=== PATIENT | male | born 1965 | race Caucasian/White ===

== ENCOUNTER 2018-03-11 12:13 | Inpatient (IN) | payer OTHER ==
[2018-03-11] MEDS: METHYLPREDNISOLONE 125 MG INJ IV ×2 (13:18→21:33)
[2018-03-11] MEDS: ALBUTEROL 0.5% (NEB) 2.5 MG/0.5 ML AMP INH (13:19)
[2018-03-11] MEDS: IPRATROPIUM (NEB) 0.5 MG/2.5 ML AMP INH (13:19)
[2018-03-11] MEDS: NALOXONE (0.4 MG/ML) INJ IV (13:22)
[2018-03-11] MEDS: ONDANSETRON 4 MG INJ IV ×2 (13:27→13:30)
[2018-03-11] MEDS: ASPIRIN 81 MG TAB PO (13:27)
[2018-03-11 13:34] LABS: ADD MAN DIFF? NO
[2018-03-11 13:36] LABS: BASOPHIL # 0.1 10^3/ul (0.0-0.1); EOSINOPHILS # 0.9 10^3/ul (0.0-0.5); EOSINOPHILS % 12.8 % (0.0-7.0); HEMATOCRIT 56.4 % (42.0-52.0); LYMPHOCYTES # 1.8 10^3/ul (0.8-2.9); LYMPHOCYTES % 25.5 % (15.0-51.0); MEAN CORPUSCULAR HEMOGLOBIN 31.1 pg (29.0-33.0); MEAN CORPUSCULAR HGB CONC 33.7 g/dl (32.0-37.0); MEAN CORPUSCULAR VOLUME 92.5 fl (82.0-101.0); MEAN PLATELET VOLUME 8.6 fl (7.4-10.4); MONOCYTE # 0.8 10^3/ul (0.3-0.9); NEUTROPHIL # 3.6 10^3/ul (1.6-7.5); NEUTROPHILS % 49.3 % (39.0-77.0); PLATELET COUNT 170 10^3/UL (140-415); RED CELL DISTRIBUTION WIDTH 13.7 % (11.5-14.5)
[2018-03-11 13:36] LABS: WHITE BLOOD COUNT 7.2 10^3/ul (4.8-10.8)
[2018-03-11 13:44] LABS: AADO2 Arterial 100.8 mmHg (7.0-24.0); Allen Test ACCEPTAB; Arterial Base Excess 1.4 mmol/L (-3.0-3); Arterial COHb 1.8 % (0.0-3.0); Arterial Fraction of Oxyhgb 96.6 % (93.0-99.0); Arterial HCO3 27.6 mmol/L (22.0-26.0); Arterial MetHb 0.6 % (0.0-1.5); Arterial Total Hemglobin 20.5 g/dl (12.0-18.0); Arterial pCO2 47.9 mmhg (35-45); MODE MASK - SIMPLE; Site Left Radial
[2018-03-11 13:55] LABS: ANION GAP 16 (8-16); BLOOD UREA NITROGEN 12 mg/dl (7-20); CALCIUM 8.6 mg/dl (8.4-10.2); CARBON DIOXIDE 25 mmol/L (21-31); CHLORIDE 103 mmol/L (97-110); CREATININE 1.16 mg/dl (0.61-1.24); GLUCOSE 118 mg/dl (70-220); SODIUM 140 mmol/L (135-144)
[2018-03-11 14:00] LABS: ETHANOL < 10.0 mg/dl
[2018-03-11 14:01] LABS: ADD UMIC NO; UR ASCORBIC ACID NEGATIVE (NEGATIVE); UR BILIRUBIN (Dip) NEGATIVE (NEGATIVE); UR BLOOD (Dip) NEGATIVE (NEGATIVE); UR CLARITY CLEAR (CLEAR); UR COLOR YELLOW (YELLOW); UR GLUCOSE (Dip) 2+ mg/dL (NEGATIVE); UR KETONES (Dip) NEGATIVE (NEGATIVE); UR LEUKOCYTE ESTERASE (Dip) NEGATIVE Leu/ul (NEGATIVE); UR NITRITE (Dip) NEGATIVE (NEGATIVE); UR SPECIFIC GRAVITY (Dip) 1.027 (1.003-1.030); UR TOTAL PROTEIN (Dip) NEGATIVE (NEGATIVE); UR UROBILINOGEN (Dip) 2+ mg/dL (NEGATIVE)
[2018-03-11 14:08] LABS: B-TYPE NATRIURETIC PEPTIDE 23 PG/ML (0-125); TROPONIN-I < 0.012 ng/ml (0.00-0.12)
[2018-03-11 14:24] LABS: AMPHETAMINE/METHAMPHETAMINE Positive (NEGATIVE); BARBITURATES Negative (NEGATIVE); BENZODIAZEPINES Negative (NEGATIVE); CANNABINOIDS Positive (NEGATIVE); COCAINE Positive (NEGATIVE); OPIATES Negative (NEGATIVE)
[2018-03-11] MEDS ORDERED: ACETAMINOPHEN 325 MG TAB PO (15:30)
[2018-03-11] MEDS ORDERED: hydrALAzine 20 MG INJ IV (15:30)
[2018-03-11] MEDS ORDERED: NACL 0.9% 3 ML SYG IV (15:30)
[2018-03-11] MEDS ORDERED: ONDANSETRON 4 MG INJ IV (15:30)
[2018-03-11] MEDS ORDERED: ALBUTEROL/IPRATROPIUM (NEB) 3 ML AMP HHN (15:30)
[2018-03-11 15:34] LABS: HEMOGLOBIN A1C 5.9 % (0-5.9)
[2018-03-11 15:49] LABS: FREE T4 (FREE THYROXINE) 0.85 ng/dl (0.64-1.79)
[2018-03-11] MEDS ORDERED: LORAZEPAM 2 MG INJ IV (16:00)
[2018-03-11] MEDS: ALBUTEROL/IPRATROPIUM (NEB) 3 ML AMP HHN (21:32)
[2018-03-11] MEDS: FAMOTIDINE 20 MG TAB PO (21:33)
[2018-03-11] MEDS: CHLORDIAZEPOXIDE 25 MG CAP PO (22:08)
[2018-03-12 05:44] LABS: ADD MAN DIFF? NO
[2018-03-12 05:46] LABS: BASOPHILS % 0.1 % (0.0-2.0); HEMATOCRIT 55.3 % (42.0-52.0); HEMOGLOBIN 18.8 g/dl (14.0-18.0); LYMPHOCYTES % 9.8 % (15.0-51.0); MEAN CORPUSCULAR HEMOGLOBIN 31.3 pg (29.0-33.0); MEAN CORPUSCULAR VOLUME 92.2 fl (82.0-101.0); MEAN PLATELET VOLUME 8.9 fl (7.4-10.4); MONOCYTE # 0.4 10^3/ul (0.3-0.9); MONOCYTES % 3.5 % (0.0-11.0); NEUTROPHIL # 9.1 10^3/ul (1.6-7.5); NEUTROPHILS % 86.1 % (39.0-77.0); PLATELET COUNT 193 10^3/UL (140-415); RED CELL DISTRIBUTION WIDTH 13.8 % (11.5-14.5)
[2018-03-12 05:46] LABS: WHITE BLOOD COUNT 10.5 10^3/ul (4.8-10.8)
[2018-03-12 06:11] LABS: CHOL/HDL RATIO 5.3 RATIO; CHOLESTEROL 170 mg/dl (100-200); HDL CHOLESTEROL 32 mg/dl (28-71); LDL CHOLESTEROL,CALCULATED 127 mg/dl; MAGNESIUM 2.3 mg/dl (1.7-2.5); TRIGLYCERIDES 54 mg/dl (0-149)
[2018-03-12 06:11] LABS: PHOSPHORUS 2.6 mg/dl (2.5-4.9)
[2018-03-12 06:15] LABS: INR 1.02; PARTIAL THROMBOPLASTIN TIME 28.4 Sec (25.0-35.0); PROTIME 13.5 Sec (11.9-14.9); PT RATIO 1.1
[2018-03-12 06:16] LABS: ANION GAP 13 (8-16); BLOOD UREA NITROGEN 14 mg/dl (7-20); CALCIUM 8.9 mg/dl (8.4-10.2); CARBON DIOXIDE 27 mmol/L (21-31); CHLORIDE 106 mmol/L (97-110); CREATININE 1.06 mg/dl (0.61-1.24); GLUCOSE 202 mg/dl (70-220); POTASSIUM 4.5 mmol/L (3.5-5.1); SODIUM 141 mmol/L (135-144)
[2018-03-12] MEDS: METHYLPREDNISOLONE 125 MG INJ IV (06:20)
[2018-03-12] MEDS: ALBUTEROL/IPRATROPIUM (NEB) 3 ML AMP HHN (08:12)
[2018-03-12] MEDS: CHLORDIAZEPOXIDE 25 MG CAP PO (09:17)
[2018-03-12] MEDS: FAMOTIDINE 20 MG TAB PO (09:17)
[2018-03-12] MEDS: MULTIVITAMINS THERAPEUTIC TAB PO (09:17)
[2018-03-12] MEDS: ENOXAPARIN 40 MG/0.4 ML SYG SC (09:19)
[2018-03-12] MEDS ORDERED: METHYLPREDNISOLONE 40 MG INJ IV (14:00)
== END 2018-03-12 13:10 | disposition home or self-care (01) | DRG 190 ==
LOC: E/R 12:13 → MS4 14:04
DX: J44.1 Chronic obstructive pulmonary disease with (acute) exacerbation (principal); J96.01 Acute respiratory failure with hypoxia; I10 Essential (primary) hypertension; F12.10 Cannabis abuse, uncomplicated; F14.10 Cocaine abuse, uncomplicated; F10.10 Alcohol abuse, uncomplicated; Y90.0 Blood alcohol level of less than 20 mg/100 ml; F15.10 Other stimulant abuse, uncomplicated; F17.210 Nicotine dependence, cigarettes, uncomplicated
CPT/HCPCS: 36600; 71045; 80048; 80061; 80306; 80307; 81003; 82803; 83036; 83735; 83880; 84100; 84439; 84443; 84484; 85025; 85610; 85730; 93005; 94640; 94644; 96374; 96375; 99285-25

== ENCOUNTER 2018-06-19 07:56 | Inpatient (IN) | payer OTHER ==
[2018-06-19 09:00] LABS: ADD MAN DIFF? NO
[2018-06-19 09:15] LABS: BASOPHIL # 0.1 10^3/ul (0.0-0.1); BASOPHILS % 0.6 % (0.0-2.0); EOSINOPHILS # 0.5 10^3/ul (0.0-0.5); EOSINOPHILS % 5.1 % (0.0-7.0); HEMATOCRIT 54.5 % (42.0-52.0); HEMOGLOBIN 18.7 g/dl (14.0-18.0); LYMPHOCYTES # 2.2 10^3/ul (0.8-2.9); LYMPHOCYTES % 20.7 % (15.0-51.0); MEAN CORPUSCULAR HEMOGLOBIN 31.6 pg (29.0-33.0); MEAN CORPUSCULAR HGB CONC 34.3 g/dl (32.0-37.0); MEAN CORPUSCULAR VOLUME 92.2 fl (82.0-101.0); MEAN PLATELET VOLUME 8.5 fl (7.4-10.4); MONOCYTE # 0.7 10^3/ul (0.3-0.9); MONOCYTES % 6.8 % (0.0-11.0); NEUTROPHIL # 6.9 10^3/ul (1.6-7.5); NEUTROPHILS % 66.1 % (39.0-77.0); PLATELET COUNT 207 10^3/UL (140-415); RED BLOOD COUNT 5.91 10^6/ul (4.70-6.10); RED CELL DISTRIBUTION WIDTH 12.7 % (11.5-14.5)
[2018-06-19 09:15] LABS: WHITE BLOOD COUNT 10.5 10^3/ul (4.8-10.8)
[2018-06-19 09:33] LABS: ALANINE AMINOTRANSFERASE 34 IU/L (13-69); ALBUMIN/GLOBULIN RATIO 1.48; ALKALINE PHOSPHATASE 91 IU/L (42-121); ANION GAP 11 (8-16); ASPARTATE AMINO TRANSFERASE 28 IU/L (15-46); BILIRUBIN,INDIRECT 0.7 mg/dl (0-1.1); BILIRUBIN,TOTAL 0.7 mg/dl (0.2-1.3); BLOOD UREA NITROGEN 13 mg/dl (7-20); CALCIUM 8.5 mg/dl (8.4-10.2); CARBON DIOXIDE 29 mmol/L (21-31); CHLORIDE 99 mmol/L (97-110); CREATININE 0.96 mg/dl (0.61-1.24); GLUCOSE 144 mg/dl (70-220); SODIUM 136 mmol/L (135-144); TOTAL PROTEIN 6.7 g/dl (6.1-8.1)
[2018-06-19 09:50] LABS: INR 1.06; PARTIAL THROMBOPLASTIN TIME 28.6 Sec (25.0-35.0); PROTIME 13.9 Sec (11.9-14.9); PT RATIO 1.1
[2018-06-19] MEDS ORDERED: BUPIVACAINE 0.25% (MPF) 30 ML INJ (11:48)
[2018-06-19] MEDS ORDERED: POLYMYXIN/BACITRACIN 1L IRRIG (11:50)
[2018-06-19] MEDS ORDERED: DIPHENHYDRAMINE 50 MG INJ IV (12:00)
[2018-06-19] MEDS ORDERED: FENTAnyl 50 MCG/ML VIAL IV ×2 (12:00)
[2018-06-19] MEDS ORDERED: hydrALAzine 20 MG INJ IV ×2 (12:00→18:30)
[2018-06-19] MEDS ORDERED: MIDAZOLAM 1 MG/ML 2 ML INJ IV (12:00)
[2018-06-19] MEDS ORDERED: HYDROmorphONE 1 MG/5 ML IV SYRINGE IV ×2 (12:00)
[2018-06-19] MEDS ORDERED: METOCLOPRAMIDE 10 MG INJ IV (12:00)
[2018-06-19] MEDS ORDERED: OXYCODONE/ACETAMINOPHEN (5/325) TAB PO ×2 (12:00)
[2018-06-19] MEDS ORDERED: EPHEDrine SULFATE 50 MG/5 ML SYG IV (12:00)
[2018-06-19] MEDS ORDERED: SUCCINYLCHOLINE CHLORIDE 100 MG/5 ML SYG IV (12:15)
[2018-06-19] MEDS ORDERED: CEFAZOLIN 1 GM INJ (12:15)
[2018-06-19] MEDS ORDERED: ROCURONIUM 50 MG INJ ×2 (12:15→13:11)
[2018-06-19] MEDS ORDERED: NEOSTIGMINE 3 MG/3 ML SYRINGE ×2 (12:15→13:11)
[2018-06-19] MEDS ORDERED: LIDOCAINE 2% (SDV) 5 ML INJ (12:15)
[2018-06-19] MEDS ORDERED: GLYCOPYRROLATE 0.4 MG INJ ×2 (12:15→13:11)
[2018-06-19] MEDS ORDERED: PROPOFOL 20 ML (12:15)
[2018-06-19] MEDS ORDERED: FENTAnyl 50 MCG/ML VIAL (12:27)
[2018-06-19] MEDS: CEFAZOLIN 2 GM/50 ML (PMX) 50 ML IVPB (12:37)
[2018-06-19] MEDS ORDERED: LABETALOL HCL 20MG INJ (13:18)
[2018-06-19] MEDS: BUPIVACAINE 0.25% (MPF) 30 ML INJ INJ (13:30)
[2018-06-19] MEDS: LABETALOL HCL 20MG INJ IV ×2 (13:55→14:09)
[2018-06-19] MEDS ORDERED: HYDROCODONE/APAP (10/325) TAB PO (14:00)
[2018-06-19] MEDS: HYDROmorphONE 1 MG/5 ML IV SYRINGE IV ×3 (14:05→14:34)
[2018-06-19] MEDS: FENTAnyl 50 MCG/ML VIAL IV ×3 (14:06→14:35)
[2018-06-19] MEDS: SOD CHLORIDE 0.9% 1,000 ML IV (14:11)
[2018-06-19] MEDS: MEPERIDINE 25 MG INJ IV (14:36)
[2018-06-19] MEDS: ONDANSETRON 4 MG INJ IV (14:37)
[2018-06-19 16:25] LABS: ADD MAN DIFF? NO
[2018-06-19 16:26] LABS: BASOPHIL # 0.1 10^3/ul (0.0-0.1); BASOPHILS % 0.4 % (0.0-2.0); EOSINOPHILS # 0.3 10^3/ul (0.0-0.5); HEMATOCRIT 55.6 % (42.0-52.0); HEMOGLOBIN 18.9 g/dl (14.0-18.0); IMMATURE GRANS #M 0.08 10^3/ul; IMMATURE GRANS % (M) 0.6 %; LYMPHOCYTES # 1.4 10^3/ul (0.8-2.9); LYMPHOCYTES % 10.3 % (15.0-51.0); MEAN CORPUSCULAR HEMOGLOBIN 31.8 pg (29.0-33.0); MEAN CORPUSCULAR VOLUME 93.6 fl (82.0-101.0); MEAN PLATELET VOLUME 8.2 fl (7.4-10.4); MONOCYTE # 0.7 10^3/ul (0.3-0.9); MONOCYTES % 5.2 % (0.0-11.0); NEUTROPHILS % 81.5 % (39.0-77.0); PLATELET COUNT 187 10^3/UL (140-415); RED BLOOD COUNT 5.94 10^6/ul (4.70-6.10); RED CELL DISTRIBUTION WIDTH 12.9 % (11.5-14.5)
[2018-06-19 16:26] LABS: WHITE BLOOD COUNT 13.5 10^3/ul (4.8-10.8)
[2018-06-19 16:44] LABS: ALANINE AMINOTRANSFERASE 32 IU/L (13-69); ALBUMIN 3.8 g/dl (3.3-4.9); ALKALINE PHOSPHATASE 85 IU/L (42-121); ANION GAP 14 (8-16); ASPARTATE AMINO TRANSFERASE 32 IU/L (15-46); BILIRUBIN,INDIRECT 0.6 mg/dl (0-1.1); BILIRUBIN,TOTAL 0.6 mg/dl (0.2-1.3); BLOOD UREA NITROGEN 15 mg/dl (7-20); CALCIUM 8.2 mg/dl (8.4-10.2); CARBON DIOXIDE 24 mmol/L (21-31); CHLORIDE 102 mmol/L (97-110); CREATININE 0.99 mg/dl (0.61-1.24); GLUCOSE 170 mg/dl (70-220); POTASSIUM 3.7 mmol/L (3.5-5.1); SODIUM 136 mmol/L (135-144); TOTAL PROTEIN 6.5 g/dl (6.1-8.1)
[2018-06-19] MEDS: morphine 2 MG INJ IV (22:08)
[2018-06-19] MEDS ORDERED: GLUCAGON 1 MG INJ IM (23:45)
[2018-06-19] MEDS ORDERED: GLUCOSE GEL 15 GRAM TUBE BUCCAL (23:45)
[2018-06-19] MEDS ORDERED: GLUCOSE GEL 15 GRAM TUBE PO ×2 (23:45)
[2018-06-19] MEDS ORDERED: DEXTROSE 50% 50 ML SYRINGE IV ×2 (23:45)
[2018-06-20] MEDS: SOD CHLORIDE 0.9% 1,000 ML IV ×3 (01:27→11:51)
[2018-06-20] MEDS: ACCU-CHEK XX (02:00)
[2018-06-20 05:20] LABS: ADD MAN DIFF? NO
[2018-06-20 05:21] LABS: BASOPHIL # 0.1 10^3/ul (0.0-0.1); BASOPHILS % 0.4 % (0.0-2.0); EOSINOPHILS # 0.1 10^3/ul (0.0-0.5); EOSINOPHILS % 0.4 % (0.0-7.0); HEMATOCRIT 55.4 % (42.0-52.0); HEMOGLOBIN 18.7 g/dl (14.0-18.0); IMMATURE GRANS #M 0.08 10^3/ul; IMMATURE GRANS % (M) 0.6 %; LYMPHOCYTES # 1.1 10^3/ul (0.8-2.9); LYMPHOCYTES % 8.2 % (15.0-51.0); MEAN CORPUSCULAR HEMOGLOBIN 31.4 pg (29.0-33.0); MEAN CORPUSCULAR HGB CONC 33.8 g/dl (32.0-37.0); MEAN CORPUSCULAR VOLUME 93.1 fl (82.0-101.0); MEAN PLATELET VOLUME 8.7 fl (7.4-10.4); MONOCYTES % 7.2 % (0.0-11.0); NEUTROPHIL # 11.6 10^3/ul (1.6-7.5); NEUTROPHILS % 83.2 % (39.0-77.0); PLATELET COUNT 207 10^3/UL (140-415); RED BLOOD COUNT 5.95 10^6/ul (4.70-6.10)
[2018-06-20 05:53] LABS: ALANINE AMINOTRANSFERASE 26 IU/L (13-69); ALBUMIN 3.9 g/dl (3.3-4.9); ALBUMIN/GLOBULIN RATIO 1.44; ALKALINE PHOSPHATASE 87 IU/L (42-121); ANION GAP 15 (8-16); ASPARTATE AMINO TRANSFERASE 25 IU/L (15-46); BLOOD UREA NITROGEN 14 mg/dl (7-20); CALCIUM 8.3 mg/dl (8.4-10.2); CARBON DIOXIDE 26 mmol/L (21-31); CHLORIDE 102 mmol/L (97-110); CREATININE 0.92 mg/dl (0.61-1.24); GLUCOSE 166 mg/dl (70-220); POTASSIUM 3.7 mmol/L (3.5-5.1); SODIUM 139 mmol/L (135-144); TOTAL PROTEIN 6.6 g/dl (6.1-8.1)
[2018-06-20] MEDS: CEFAZOLIN 2 GM/50 ML (PMX) 50 ML IVPB (06:14)
[2018-06-20] MEDS: INSULIN ASPART [NOVOLOG] 3 ML PEN SC ×2 (07:52→12:00)
[2018-06-20] MEDS: morphine 2 MG INJ IV ×2 (08:15→11:29)
[2018-06-20] MEDS ORDERED: NALOXONE (0.4 MG/ML) INJ IV (12:00)
[2018-06-20] MEDS: NS + KCL 20 MEQ 1,000 ML IV ×2 (13:23→23:18)
[2018-06-20] MEDS: KETOROLAC 30 MG INJ IV ×2 (13:35→17:39)
[2018-06-20] MEDS: HYDROmorphONE 0.2 MG/ML PCA IV (14:18)
[2018-06-20] MEDS ORDERED: INSULIN ASPART [NOVOLOG] 3 ML PEN SC (17:00)
[2018-06-20] MEDS: Insulin NOVOLOG SS MILD Algorithm (NPO/TPN/ENTERAL FEEDS) SC ×2 (17:00→21:00)
[2018-06-21] MEDS: KETOROLAC 30 MG INJ IV ×4 (00:03→17:45)
[2018-06-21] MEDS: Insulin NOVOLOG SS MILD Algorithm (NPO/TPN/ENTERAL FEEDS) SC ×5 (01:00→17:04)
[2018-06-21] MEDS: ACCU-CHEK XX (02:00)
[2018-06-21 05:09] LABS: ADD MAN DIFF? NO
[2018-06-21 05:18] LABS: BASOPHILS % 0.3 % (0.0-2.0); EOSINOPHILS # 0.1 10^3/ul (0.0-0.5); EOSINOPHILS % 0.8 % (0.0-7.0); HEMOGLOBIN 16.5 g/dl (14.0-18.0); IMMATURE GRANS #M 0.07 10^3/ul; IMMATURE GRANS % (M) 0.6 %; LYMPHOCYTES # 1.4 10^3/ul (0.8-2.9); LYMPHOCYTES % 11.8 % (15.0-51.0); MEAN CORPUSCULAR HEMOGLOBIN 31.3 pg (29.0-33.0); MEAN CORPUSCULAR HGB CONC 33.7 g/dl (32.0-37.0); MEAN CORPUSCULAR VOLUME 92.8 fl (82.0-101.0); MEAN PLATELET VOLUME 8.7 fl (7.4-10.4); MONOCYTE # 1.1 10^3/ul (0.3-0.9); MONOCYTES % 8.9 % (0.0-11.0); NEUTROPHIL # 9.3 10^3/ul (1.6-7.5); NEUTROPHILS % 77.6 % (39.0-77.0); PLATELET COUNT 179 10^3/UL (140-415); RED BLOOD COUNT 5.28 10^6/ul (4.70-6.10); RED CELL DISTRIBUTION WIDTH 13.2 % (11.5-14.5)
[2018-06-21 05:26] LABS: ANION GAP 11 (8-16); BLOOD UREA NITROGEN 14 mg/dl (7-20); CALCIUM 8.1 mg/dl (8.4-10.2); CARBON DIOXIDE 28 mmol/L (21-31); CHLORIDE 103 mmol/L (97-110); CREATININE 0.74 mg/dl (0.61-1.24); GLUCOSE 132 mg/dl (70-220); POTASSIUM 3.5 mmol/L (3.5-5.1); SODIUM 138 mmol/L (135-144)
[2018-06-21] MEDS: PANTOPRAZOLE 40 MG INJ IV (06:15)
[2018-06-21] MEDS: NS + KCL 20 MEQ 1,000 ML IV ×3 (08:49→19:40)
[2018-06-21] MEDS ORDERED: INSULIN ASPART [NOVOLOG] 3 ML PEN SC (21:00)
[2018-06-21] MEDS: Insulin NOVOLOG SS MILD Algorithm (SS with meals and bedtime) SC (21:00)
[2018-06-22] MEDS: KETOROLAC 30 MG INJ IV ×2 (00:12→05:54)
[2018-06-22] MEDS: ACCU-CHEK XX ×2 (02:00→20:22)
[2018-06-22] MEDS: NS + KCL 20 MEQ 1,000 ML IV ×3 (04:16→21:16)
[2018-06-22 05:25] LABS: ADD MAN DIFF? NO
[2018-06-22 05:29] LABS: BASOPHILS % 0.3 % (0.0-2.0); EOSINOPHILS # 0.4 10^3/ul (0.0-0.5); EOSINOPHILS % 3.6 % (0.0-7.0); HEMATOCRIT 40.4 % (42.0-52.0); HEMOGLOBIN 13.3 g/dl (14.0-18.0); IMMATURE GRANS #M 0.06 10^3/ul; IMMATURE GRANS % (M) 0.5 %; MEAN CORPUSCULAR HEMOGLOBIN 31.2 pg (29.0-33.0); MEAN CORPUSCULAR HGB CONC 32.9 g/dl (32.0-37.0); MEAN CORPUSCULAR VOLUME 94.8 fl (82.0-101.0); MEAN PLATELET VOLUME 8.7 fl (7.4-10.4); MONOCYTE # 0.9 10^3/ul (0.3-0.9); MONOCYTES % 7.6 % (0.0-11.0); NEUTROPHIL # 8.1 10^3/ul (1.6-7.5); PLATELET COUNT 161 10^3/UL (140-415); RED BLOOD COUNT 4.26 10^6/ul (4.70-6.10); RED CELL DISTRIBUTION WIDTH 13.2 % (11.5-14.5)
[2018-06-22 05:29] LABS: WHITE BLOOD COUNT 11.5 10^3/ul (4.8-10.8)
[2018-06-22] MEDS: PANTOPRAZOLE 40 MG INJ IV (05:53)
[2018-06-22 06:00] LABS: ANION GAP 8 (8-16); BLOOD UREA NITROGEN 15 mg/dl (7-20); CALCIUM 7.6 mg/dl (8.4-10.2); CARBON DIOXIDE 27 mmol/L (21-31); CHLORIDE 108 mmol/L (97-110); CREATININE 0.71 mg/dl (0.61-1.24); GLUCOSE 116 mg/dl (70-220); POTASSIUM 3.8 mmol/L (3.5-5.1); SODIUM 139 mmol/L (135-144)
[2018-06-22] MEDS: Insulin NOVOLOG SS MILD Algorithm (SS with meals and bedtime) SC ×4 (07:30→20:22)
[2018-06-22] MEDS ORDERED: KETOROLAC 30 MG INJ IV (13:00)
[2018-06-22] MEDS: HYDROmorphONE 0.2 MG/ML PCA IV (18:11)
[2018-06-23] MEDS: PANTOPRAZOLE 40 MG INJ IV (05:40)
[2018-06-23] MEDS: Insulin NOVOLOG SS MILD Algorithm (SS with meals and bedtime) SC ×2 (07:30→11:30)
[2018-06-23 08:03] LABS: ADD MAN DIFF? NO
[2018-06-23 08:09] LABS: BASOPHILS % 0.4 % (0.0-2.0); EOSINOPHILS # 0.5 10^3/ul (0.0-0.5); HEMATOCRIT 40.1 % (42.0-52.0); HEMOGLOBIN 13.5 g/dl (14.0-18.0); IMMATURE GRANS #M 0.03 10^3/ul; IMMATURE GRANS % (M) 0.3 %; LYMPHOCYTES % 22.4 % (15.0-51.0); MEAN CORPUSCULAR HEMOGLOBIN 32.1 pg (29.0-33.0); MEAN CORPUSCULAR HGB CONC 33.7 g/dl (32.0-37.0); MEAN CORPUSCULAR VOLUME 95.2 fl (82.0-101.0); MEAN PLATELET VOLUME 8.9 fl (7.4-10.4); MONOCYTE # 0.7 10^3/ul (0.3-0.9); MONOCYTES % 7.3 % (0.0-11.0); NEUTROPHIL # 5.7 10^3/ul (1.6-7.5); NEUTROPHILS % 63.6 % (39.0-77.0); PLATELET COUNT 189 10^3/UL (140-415); RED BLOOD COUNT 4.21 10^6/ul (4.70-6.10); RED CELL DISTRIBUTION WIDTH 12.9 % (11.5-14.5)
[2018-06-23 08:37] LABS: ANION GAP 10 (8-16)
[2018-06-23 08:40] LABS: BLOOD UREA NITROGEN 9 mg/dl (7-20); CARBON DIOXIDE 26 mmol/L (21-31); CHLORIDE 108 mmol/L (97-110); CREATININE 0.67 mg/dl (0.61-1.24); GLUCOSE 103 mg/dl (70-220); POTASSIUM 3.6 mmol/L (3.5-5.1); SODIUM 140 mmol/L (135-144)
== END 2018-06-23 13:00 | disposition left against medical advice (07) | DRG 940 ==
LOC: REC 07:56 → PP2 15:30
PROVIDERS: Surgery
PROC: 0WUF0JZ Supplement Abdominal Wall with Synthetic Substitute, Open Approach (ICD-10-PCS; principal; 2018-06-19 10:30)
DX: G89.18 Other acute postprocedural pain (principal); K43.6 Other and unspecified ventral hernia with obstruction, without gangrene; L76.22 Postprocedural hemorrhage of skin and subcutaneous tissue following other procedure; F20.9 Schizophrenia, unspecified; F17.210 Nicotine dependence, cigarettes, uncomplicated; J44.9 Chronic obstructive pulmonary disease, unspecified; F15.90 Other stimulant use, unspecified, uncomplicated; E78.5 Hyperlipidemia, unspecified; E11.9 Type 2 diabetes mellitus without complications; I10 Essential (primary) hypertension; Y83.8 Other surgical procedures as the cause of abnormal reaction of the patient, or of later complication, without mention of misadventure at the time of the procedure; Y92.230 Patient room in hospital as the place of occurrence of the external cause
CPT/HCPCS: 71045; 74018; 80048; 80053; 82962; 85025; 85610; 85730; 88302; 99217; G0378

== ENCOUNTER 2018-07-05 17:06 | Emergency (ER) | payer OTHER | END 2018-07-05 19:13 | disposition home or self-care (01) | LOC: FTE 17:06 | DX: T81.89XA Other complications of procedures, not elsewhere classified, initial encounter (principal); I10 Essential (primary) hypertension; F17.210 Nicotine dependence, cigarettes, uncomplicated; Y65.8 Other specified misadventures during surgical and medical care | CPT/HCPCS: 99283; Z7502 ==